=== PATIENT | female | born 1990 | race Caucasian/White ===

== ENCOUNTER 2018-05-13 20:48 | Emergency (ER) | payer OTHER ==
[~2018-05-13] VITALS: Ht 157.5 cm; Wt 83.7 kg
[~2018-05-13 20:48] MED LIST: IBUPROFEN800 MG PO; Motrin PO
[2018-05-13] MEDS ORDERED: PHENADOZ25 MG PR (22:16)
[2018-05-13 22:33] VITALS: BP 117/70
== END 2018-05-13 22:18 | disposition home or self-care (01) ==
LOC: EME 20:48
DX: F11.23 Opioid dependence with withdrawal (principal); F17.200 Nicotine dependence, unspecified, uncomplicated; Z79.891 Long term (current) use of opiate analgesic
CPT/HCPCS: 99281; 99284; Q0169